=== PATIENT | female | born 1990 | race Caucasian/White ===

== ENCOUNTER 2022-02-10 12:28 | Outpatient (CLI) | payer BC ==
[2022-02-10 14:28] LABS: INR 0.9 (0.8-1.2); PT - PROTHROMBIN TIME 10.3 secs (9.9-12.6)
[2022-02-10 14:48] LABS: PARTIAL THROMBOPLASTIN TIME 24.7 secs (24.9-33.3)
[2022-02-10 15:53] LABS: FOLATE 20.25 ng/mL (5.90 - >24.8)
== END 2022-02-10 12:29 | disposition home or self-care (01) ==
LOC: LAB.S 12:28
PROVIDERS: ATTEND Midwife
DX: Z34.83 Encounter for supervision of other normal pregnancy, third trimester (principal); D69.6 Thrombocytopenia, unspecified
CPT/HCPCS: 36415; 82746; 84443; 85384; 85610; 85730